=== PATIENT | female | born 1950 | race Caucasian/White ===

== ENCOUNTER 2018-03-06 12:09 | Emergency (ER) | payer OTHER, BC ==
[~2018-03-06] VITALS: Ht 170.2 cm; Wt 70.8 kg
[2018-03-06 12:55] VITALS: Ht 170.2 cm; Wt 70.8 kg
[2018-03-06 16:40] VITALS: BP 116/90
== END 2018-03-06 16:40 | disposition home or self-care (01) ==
LOC: ED 12:09
DX: J20.9 Acute bronchitis, unspecified (principal); F17.200 Nicotine dependence, unspecified, uncomplicated
CPT/HCPCS: 36600; J7030; J7613